=== PATIENT | male | born 1965 | race Caucasian/White ===

== ENCOUNTER 2021-12-24 11:47 | Inpatient (IN) | payer MEDICAID ==
[~2021-12-24] VITALS: Ht 172.7 cm; Wt 63.6 kg
[~2021-12-24 11:47] MED LIST: ABAC1TAB9 PO; BACL20TA84 PO; CLON-527 PO; COMIN IH; DEXL60CA3 PO; IPRA3AMP19 IH; ONDA8TAB9 PO; PER10325T PO; PRED10TA23 PO; QUET150T2 PO; RISP2TAB97 PO; RITO100T PO; ROPI3TAB PO; TRAZ-91 PO; [UNRECOGNIZED DRUG - CODE] PO
[2021-12-24] MEDS ORDERED: acetaminophen 325mg tablet PO STA (12:41)
[2021-12-24] MEDS ORDERED: normal saline 1000ML IV soln IV ONE (12:45)
[2021-12-24] MEDS ORDERED: azithromycin/NS 500mg/250ml 250 ML IV ONE ×2 (12:45→13:45)
[2021-12-24] MEDS ORDERED: CefTRIAXone 2gm/D5W 50ml BAG 50 ML IV ONE ×2 (12:45→13:45)
[2021-12-24 13:19] LABS: BASOPHILS % (AUTO) 0.1 % (0-1); EOSINOPHILS % (AUTO) 0 % (0-6); HEMATOCRIT 42.6 % (42.0-52.0); HEMOGLOBIN 14.3 g/dl (14.0-17.9); LYMPHOCYTES # (AUTO) 0.9 X10'3 (1.1-4.8); LYMPHOCYTES % (AUTO) 12.6 % (21-51); MEAN CORPUSCULAR HEMOGLOBIN 28.7 PG (27.0-31.0); MEAN CORPUSCULAR HGB CONC 33.7 g/dL (33.0-36.5); MEAN CORPUSCULAR VOLUME 85.2 FL (78-98); MEAN PLATELET VOLUME 9.7 FL (7.4-10.4); MONOCYTES # (AUTO) 0.1 X10'3 (0-0.9); MONOCYTES % (AUTO) 1.8 % (2-12); NEUTROPHILS % (AUTO) 85.5 % (42-75); PLATELET COUNT 141 X10'3 (140-440); RED BLOOD COUNT 4.99 X10'6 (4.70-6.10); RED CELL DISTRIBUTION WIDTH 14.4 % (11.5-14.5)
[2021-12-24 13:37] LABS: ALANINE AMINOTRANSFERASE 17 U/L (12-78); ALBUMIN 2.7 G/DL (3.4-5.0); ALBUMIN/GLOBULIN RATIO 0.7 (1.1-1.5); ANION GAP 8 (8-16); ASPARTATE AMINO TRANSFERASE 19 U/L (10-37); BILIRUBIN,TOTAL 0.6 MG/DL (0.1-1.0); BLOOD UREA NITROGEN 43 MG/DL (7-18); BUN/CREATININE RATIO 16.3 (5.4-32.0); CHLORIDE 93 MMOL/L (99-107); CREATININE 2.63 MG/DL (0.60-1.10); GLUCOSE 92 MG/DL (70-104); POTASSIUM 4.4 MMOL/L (3.5-5.1); SODIUM 132 MMOL/L (135-145); TOTAL CARBON DIOXIDE 31.2 MMOL/L (24-32); TOTAL PROTEIN 6.8 G/DL (6.4-8.2); eGFR 26 ML/MIN
[2021-12-24] MEDS ORDERED: dexamethasone sod phosphate 10mg/ml inj IV STA (13:42)
[2021-12-24] MEDS ORDERED: acetaminophen 325mg tablet PO ONE (13:55)
[2021-12-24] MEDS ORDERED: morphine 2 MG/ML inj. syringe IV ONE ×2 (13:55→22:10)
[2021-12-24 14:38] LABS: LACTATE DEHYDROGENASE 189 U/L (85-227)
[2021-12-24 14:53] LABS: LARGE PLATELETS FEW; TOTAL CELLS COUNTED 100; TOXIC GRANULATION 3+; TOXIC VACUOLATION 3+
[2021-12-24 14:54] LABS: ANISOCYTOSIS FEW; BURR CELLS 1+; ELLIPTOCYTES FEW; PLATELET ESTIMATE DECREASED
[2021-12-24] MEDS ORDERED: sulfmethoxaz/trimethoprim inj 10 ML in dextrose 5%-water 240 ML IV SCH (15:10)
[2021-12-24] MEDS ORDERED: sulfmethoxaz/trimethoprim inj 10 ML in dextrose 5%-water 240 ML IV ONE (15:14)
[2021-12-24 16:03] LABS: ABG BASE EXCESS 4.7 mmol/L (-2.0-2.0); ABG OXYGEN SATURATION 94.3 % (94-97); ABG PCO2 (T) 36.8 mmHg (35.0-48.0); ABG PO2 (T) 70.7 mmHg (75.0-100.0); ALLEN'S TEST POSITIVE; FCOHb 0.7 % (0.0-3.9); FMetHb 0.2 % (0.0-1.5); FO2Hb 93.5 % (94-97); TOTAL HEMOGLOBIN 12.8 G/dl (14.0-18.0)
[2021-12-24] MEDS ORDERED: NO HOME MEDS (16:31)
[2021-12-24] MEDS ORDERED: ondansetron 4mg rapidly disintigrating tab PO PRN (20:25)
[2021-12-24] MEDS ORDERED: magnesium 4gm in 100ml NS 100 ML IV PRN (20:25)
[2021-12-24] MEDS ORDERED: magnesium 2GM in 50ml NS 50 ML IV PRN (20:25)
[2021-12-24] MEDS ORDERED: magnesium Cl slow-release 64mg tablet PO PRN (20:25)
[2021-12-24] MEDS ORDERED: potassium Cl 20 mEq SR tablet PO PRN ×2 (20:25)
[2021-12-24] MEDS ORDERED: potassium CL 10mEq/100ml bag 100 ML IV PRN (20:25)
[2021-12-24] MEDS: normal saline 1000ml 1,000 ML IV SCH ×2 (21:18→21:28)
[2021-12-24] MEDS: azithromycin/NS 500mg/250ml 250 ML IV SCH ×2 (21:19→21:28)
[2021-12-24 21:49] LABS: MAGNESIUM 1.3 MG/DL (1.5-2.4); POTASSIUM 4.5 MMOL/L (3.5-5.1)
[2021-12-24] MEDS ORDERED: PERFLUTREN PROTEIN-A MICROSPHR (Optison) 0.22 MG/ML 3ML VIAL IV ONE (23:45)
[2021-12-25 01:46] LABS: ALBUMIN 2.2 G/DL (3.4-5.0); ANION GAP 10 (8-16); BLOOD UREA NITROGEN 37 MG/DL (7-18); CALCIUM 7.2 MG/DL (8.5-10.1); CHLORIDE 100 MMOL/L (99-107); CREATININE 1.85 MG/DL (0.60-1.10); GLUCOSE 136 MG/DL (70-104); MAGNESIUM 1.4 MG/DL (1.5-2.4); POTASSIUM 4.2 MMOL/L (3.5-5.1); SODIUM 135 MMOL/L (135-145); TOTAL CARBON DIOXIDE 25.3 MMOL/L (24-32); eGFR 38 ML/MIN
[2021-12-25 01:53] LABS: BASOPHILS % (AUTO) 0 % (0-1); EOSINOPHILS % (AUTO) 0.1 % (0-6); HEMATOCRIT 40.5 % (42.0-52.0); HEMOGLOBIN 13.7 g/dl (14.0-17.9); LYMPHOCYTES # (AUTO) 0.7 X10'3 (1.1-4.8); LYMPHOCYTES % (AUTO) 8.2 % (21-51); MEAN CORPUSCULAR HEMOGLOBIN 28.8 PG (27.0-31.0); MEAN CORPUSCULAR HGB CONC 33.8 g/dL (33.0-36.5); MEAN CORPUSCULAR VOLUME 85.4 FL (78-98); MEAN PLATELET VOLUME 10.2 FL (7.4-10.4); MONOCYTES # (AUTO) 0.2 X10'3 (0-0.9); MONOCYTES % (AUTO) 2.2 % (2-12); NEUTROPHILS # (AUTO) 7.9 X10'3 (1.8-7.7); NEUTROPHILS % (AUTO) 89.5 % (42-75); PLATELET COUNT 118 X10'3 (140-440); RED BLOOD COUNT 4.74 X10'6 (4.70-6.10); RED CELL DISTRIBUTION WIDTH 14.7 % (11.5-14.5); WHITE BLOOD COUNT 8.8 X10'3 (4.5-11.0)
[2021-12-25] MEDS: normal saline 1000ml 1,000 ML IV SCH ×2 (02:05→16:02)
[2021-12-25 02:12] VITALS: BP 114/80
--- NOTE | 2021-12-25 02:17 | NUR ---
Patient admitted to room 3014B. Alert and oriented X4. Unsteady on his feet, dyspneic on exertion. 3L 94% complaining of chest pain. Tylenol given. Tele attached. Call hinson within reach. Will continue to monitor.
--- NOTE | 2021-12-25 05:52 | NUR ---
Patient complaining of non-productive cough. order for Robitussin DM 10mg q6hrs as needed.
[2021-12-25 06:00] VITALS: BP 146/80
[2021-12-25] MEDS: ondansetron/PF 4mg/2ml inj IV PRN ×3 (06:35→20:35)
[2021-12-25] MEDS: guaiFENesin/DM 10ml UD oral syrup PO PRN ×2 (07:38→20:36)
[2021-12-25] MEDS: K and/or MAG REPLACEMENT MC SCH ×2 (08:00→20:00)
[2021-12-25] MEDS ORDERED: LORazepam 2 mg/ml vial IV PRN (09:05)
[2021-12-25] MEDS: LORazepam 1 MG tablet PO PRN ×2 (10:22→20:36)
[2021-12-25 11:00] VITALS: BP 123/81
[2021-12-25] MEDS: CefTRIAXone 2gm/D5W 50ml BAG 50 ML IV SCH (13:18)
[2021-12-25] MEDS: acetaminophen 325mg tablet PO PRN (14:26)
--- NOTE | 2021-12-25 17:45 | NUR ---
Mr Phillip has been assessed as indicated. He has had periods of agitation and restlessness. he repeatedly tells staff that he has axniety.. He is occasionally short of breath spontaneously. He has had several episode of nausea with a small clear emesis. He has IV access at this time. This had to be placed by the PICC nurse, after sevral; Addendum: 12/25/21 at 1806 by Lisseth Wilhelm RN nurses had difficulty attempting to establish patent access. he has rested between period sof being aggitated and impulsive. IV antibiotics have been well toelrated
[2021-12-25 18:00] VITALS: BP 124/93
--- NOTE | 2021-12-25 18:15 | NUR ---
Problems reprioritized. Patient report given, questions answered & plan of care reviewed with PANKAJ MOELLER.
[2021-12-25] MEDS: furosemide 40mg/4ml inj IV SCH (18:25)
--- NOTE | 2021-12-25 20:00 | NUR ---
Patient anxious, jittery and irritated after given Ativan IV. Pulled IV out that staff had to place with ultrasound. Has ripped tele off 3 times with no reason why. This nurse asked patient when was his last drink of alcohol, "he stated it was a 40 and a few days ago." Doctor paged to discuss the possibility that the patient having signs of a withdrawal behavior". Doctor seen on unit. order for PO ativan 1mg q8, a order for PO Ativan already exist for patient. Will continue to monitor.
[2021-12-25] MEDS: azithromycin/NS 500mg/250ml 250 ML IV SCH (20:35)
[2021-12-25 22:00] VITALS: BP 128/68
[2021-12-25 22:13] LABS: URINE AMPHETAMINE SCREEN POSITIVE (Neg); URINE BARBITUATE SCREEN NEGATIVE (Neg); URINE BENZODIAZEPINES SCREEN NEGATIVE (Neg); URINE CANNABINOID SCREEN POSITIVE (Neg); URINE COCAINE SCREEN NEGATIVE (Neg); URINE METHADONE SCREEN NEGATIVE (Neg); URINE OPIATE SCREEN NEGATIVE (Neg); URINE PHENCYCLIDINE SCREEN NEGATIVE (Neg)
[2021-12-26 06:00] VITALS: BP 105/64
[2021-12-26 07:12] LABS: BASOPHILS % (AUTO) 0 % (0-1); EOSINOPHILS % (AUTO) 0 % (0-6); HEMATOCRIT 35.7 % (42.0-52.0); LYMPHOCYTES # (AUTO) 0.8 X10'3 (1.1-4.8); LYMPHOCYTES % (AUTO) 7.5 % (21-51); MEAN CORPUSCULAR HEMOGLOBIN 28.5 PG (27.0-31.0); MEAN CORPUSCULAR HGB CONC 33.5 g/dL (33.0-36.5); MEAN PLATELET VOLUME 10.2 FL (7.4-10.4); MONOCYTES # (AUTO) 0.4 X10'3 (0-0.9); MONOCYTES % (AUTO) 3.5 % (2-12); NEUTROPHILS # (AUTO) 9.2 X10'3 (1.8-7.7); PLATELET COUNT 104 X10'3 (140-440); RED BLOOD COUNT 4.19 X10'6 (4.70-6.10); RED CELL DISTRIBUTION WIDTH 14.7 % (11.5-14.5); WHITE BLOOD COUNT 10.3 X10'3 (4.5-11.0)
[2021-12-26 08:00] LABS: ANION GAP 7 (8-16); BLOOD UREA NITROGEN 33 MG/DL (7-18); BUN/CREATININE RATIO 25.2 (5.4-32.0); CALCIUM 7.6 MG/DL (8.5-10.1); CHLORIDE 103 MMOL/L (99-107); CREATININE 1.31 MG/DL (0.60-1.10); GLUCOSE 93 MG/DL (70-104); POTASSIUM 3.6 MMOL/L (3.5-5.1); SODIUM 136 MMOL/L (135-145); eGFR 57 ML/MIN
[2021-12-26] MEDS: K and/or MAG REPLACEMENT MC SCH ×2 (08:00→11:14)
[2021-12-26] MEDS: acetaminophen 325mg tablet PO PRN (09:17)
[2021-12-26] MEDS: furosemide 40mg/4ml inj IV SCH (10:04)
[2021-12-26] MEDS: CefTRIAXone 2gm/D5W 50ml BAG 50 ML IV SCH (10:04)
[2021-12-26] MEDS: normal saline 1000ml 1,000 ML IV SCH (10:04)
--- NOTE | 2021-12-26 10:09 | NUR ---
Medications passed for primary nurse Alem MOELLER while on break. Kayla PCU (Resource RN)
[2021-12-26 11:00] VITALS: BP 110/59
[2021-12-26] MEDS ORDERED: traMADol 50MG tablet PO PRN (13:15)
[2021-12-26 15:00] VITALS: BP 111/65
[2021-12-26 16:11] LABS: PLATELET ESTIMATE NORMAL; SMUDGE CELLS FEW; TOTAL CELLS COUNTED 100
--- NOTE | 2021-12-26 17:45 | NUR ---
Mr Phillip has been assessed as indicated. He was very sleepy this shift. When in the bed he is very restless. When he needs to get up he is impulsive and unpredictable. he repositions himself in the bed frequently. he refuses a hospital gown. he has been successfully treated for a headache with Ultram. He has tolerated IV ABX well. He is presently resting quietly and will continue to be monitored
[2021-12-26 18:00] VITALS: BP 104/52
--- NOTE | 2021-12-26 18:30 | NUR ---
Problems reprioritized. Patient report given, questions answered & plan of care reviewed with PANKAJ MOELLER .
[2021-12-26] MEDS: carVEDilol 3.125mg tablet PO SCH (19:47)
[2021-12-26] MEDS: LORazepam 1 MG tablet PO PRN (19:48)
[2021-12-26 22:00] VITALS: BP 98/58
[2021-12-27 06:00] VITALS: BP 101/68
[2021-12-27] MEDS ORDERED: lisinopril 2.5mg tablet PO SCH (08:00)
[2021-12-27 08:37] LABS: BASOPHILS % (AUTO) 0.1 % (0-1); LYMPHOCYTES # (AUTO) 0.9 X10'3 (1.1-4.8); MONOCYTES # (AUTO) 0.5 X10'3 (0-0.9); WHITE BLOOD COUNT 6.6 X10'3 (4.5-11.0)
[2021-12-27 08:40] LABS: EOSINOPHILS % (AUTO) 0.4 % (0-6); HEMATOCRIT 38.3 % (42.0-52.0); HEMOGLOBIN 12.9 g/dl (14.0-17.9); LYMPHOCYTES % (AUTO) 13.1 % (21-51); MEAN CORPUSCULAR HEMOGLOBIN 28.5 PG (27.0-31.0); MEAN CORPUSCULAR HGB CONC 33.6 g/dL (33.0-36.5); MEAN CORPUSCULAR VOLUME 84.6 FL (78-98); MEAN PLATELET VOLUME 10.5 FL (7.4-10.4); MONOCYTES % (AUTO) 7.3 % (2-12); NEUTROPHILS # (AUTO) 5.3 X10'3 (1.8-7.7); NEUTROPHILS % (AUTO) 79.1 % (42-75); PLATELET COUNT 132 X10'3 (140-440); RED BLOOD COUNT 4.52 X10'6 (4.70-6.10); RED CELL DISTRIBUTION WIDTH 14.9 % (11.5-14.5)
[2021-12-27] MEDS: CefTRIAXone 2gm/D5W 50ml BAG 50 ML IV SCH (09:19)
[2021-12-27] MEDS: carVEDilol 3.125mg tablet PO SCH (09:19)
[2021-12-27] MEDS: furosemide 40mg/4ml inj IV SCH (09:19)
[2021-12-27 09:24] LABS: ALBUMIN 2.2 G/DL (3.4-5.0); ANION GAP 7 (8-16); BLOOD UREA NITROGEN 31 MG/DL (7-18); BUN/CREATININE RATIO 27.2 (5.4-32.0); CALCIUM 8.1 MG/DL (8.5-10.1); CHLORIDE 100 MMOL/L (99-107); CREATININE 1.14 MG/DL (0.60-1.10); GLUCOSE 88 MG/DL (70-104); MAGNESIUM 1.9 MG/DL (1.5-2.4); POTASSIUM 3.7 MMOL/L (3.5-5.1); SODIUM 134 MMOL/L (135-145); TOTAL CARBON DIOXIDE 26.7 MMOL/L (24-32); eGFR 67 ML/MIN
--- NOTE | 2021-12-27 09:29 | NUR ---
oxygen off at 0900 pulse ox on room air at 0930 92%
[2021-12-27 09:51] LABS: PLATELET ESTIMATE DECREASED
[2021-12-27 09:52] LABS: GIANT PLATELET FEW; LARGE PLATELETS FEW
[2021-12-27 09:53] LABS: ANISOCYTOSIS FEW; BURR CELLS FEW
[2021-12-27] MEDS ORDERED: COR3.125T PO (10:10)
[2021-12-27] MEDS ORDERED: FURO40TA4 PO ×2 (10:11→12:04)
[2021-12-27] MEDS ORDERED: LISI2.5T14 PO ×2 (10:11→12:04)
[2021-12-27] MEDS ORDERED: LEVO750T46 PO ×2 (10:11→12:04)
[2021-12-27 11:00] VITALS: BP_SYST 116; BP_SYST 96; BP_DIAS 60; BP_DIAS 85
[2021-12-27] MEDS ORDERED: CARV3.122 PO (12:04)
--- NOTE | 2021-12-27 12:05 | NUR ---
Mr Phillip has been assessed as indicated. he denies pain. He is being DC to home. He will be transported by private vehicle. IV access has been removed. DC instructions have been reviewed. He was visited by a sales representative groceries from [facility]. He was compliant with the plan to DC. RX were given in paper form at the patient's request. At the time of DC he had no s/s of distress or discomfort. He was escorted to the front door by WC escorted by staff. His ride was 6 minutes away. The sales representative groceries from [facility] remained with him as he waited for his ride to arrive
[2021-12-27 12:48] LABS: % CD 4 POS. LYMPH. 7.2 % (30.8-58.5); % CD 8 POS. LYMPH. 45.4 % (12.0-35.5); ABS. CD 8 SUPPRESSOR 545 /uL (109-897); ABSOLUTE CD 4 HELPER 86 /uL (359-1519); BASO (ABSOLUTE) 0.1 x10E3/uL (0.0-0.2); BASOS 1 % (Not Estab.); CD4/CD8 RATIO 0.16 (0.92-3.72); EOS 0 % (Not Estab.); LYMPHS 9 % (Not Estab.); LYMPHS (ABSOLUTE) 1.2 x10E3/uL (0.7-3.1); MCH 28.5 pg (26.6-33.0); MCHC 33.3 g/dL (31.5-35.7); MCV 86 fL (79-97); MONOCYTES 3 % (Not Estab.); MONOCYTES (ABSOLUTE) 0.4 x10E3/uL (0.1-0.9); NEUTROPHILS 86 % (Not Estab.); PLATELETS 151 x10E3/uL (150-450); RBC 3.86 x10E6/uL (4.14-5.80); RDW 14.8 % (11.6-15.4); WBC 12.7 x10E3/uL (3.4-10.8)
[2021-12-29 22:47] LABS: HIV LOG 10 4.884 (.); HIV-1 RNA by PCR 76480 copies/mL (.)
== END 2021-12-27 12:10 | disposition home or self-care (01) | DRG 890 ==
LOC: ER 11:47 → ED HOLD 20:31 → PCU 3S 12-25 01:35
PROVIDERS: ADMIT Internal Medicine; ATTEND Internal Medicine
DX: A40.3 Sepsis due to Streptococcus pneumoniae (principal); B20 Human immunodeficiency virus [HIV] disease; J96.00 Acute respiratory failure, unspecified whether with hypoxia or hypercapnia; N17.0 Acute kidney failure with tubular necrosis; I50.21 Acute systolic (congestive) heart failure; I21.A1 Myocardial infarction type 2; I42.9 Cardiomyopathy, unspecified; J13 Pneumonia due to Streptococcus pneumoniae; E86.0 Dehydration; Z20.822 Contact with and (suspected) exposure to COVID-19; F19.10 Other psychoactive substance abuse, uncomplicated; F32.A Depression, unspecified; F41.9 Anxiety disorder, unspecified; F10.20 Alcohol dependence, uncomplicated; N18.9 Chronic kidney disease, unspecified; F17.210 Nicotine dependence, cigarettes, uncomplicated; J44.0 Chronic obstructive pulmonary disease with (acute) lower respiratory infection; Z59.00 Homelessness unspecified; Z91.14 Patient's other noncompliance with medication regimen; Z91.19 Patient's noncompliance with other medical treatment and regimen; Z56.0 Unemployment, unspecified; Z93.0 Tracheostomy status
CPT/HCPCS: 36000; 36415; 36600; 71045; 76937; 80048; 80053; 80305; 82803; 83605; 83615; 83735; 83880; 84132; 84145; 84484; 85007; 85008; 85018; 85025; 86360; 87040; 87077; 87081; 87186; 87502; 87503; 87535; 87635; 93005; 93306; 96365; 96366; 96368; 99291; C9803; G0378; J0456; J0696; J1100; J1940; J2060; J2270; J2405; J3490; J7030; J7060

== ENCOUNTER 2023-07-28 14:12 | Emergency (ER) | payer MEDICAID ==
[~2023-07-28] VITALS: Ht 170.2 cm; Wt 72.8 kg
[~2023-07-28 14:12] MED LIST changes: -ABAC1TAB9 PO; -BACL20TA84 PO; +CARV3.122 PO; -CLON-527 PO; -COMIN IH; -DEXL60CA3 PO; +FURO40TA4 PO; -IPRA3AMP19 IH; +LEVO750T68 PO; +LISI2.5T14 PO; -ONDA8TAB9 PO; -PER10325T PO; -PRED10TA23 PO; -QUET150T2 PO; -RISP2TAB97 PO; -RITO100T PO; -ROPI3TAB PO; -TRAZ-91 PO; -[UNRECOGNIZED DRUG - CODE] PO
[2023-07-28 14:13] VITALS: BP 146/92; PULSE 102; TEMP 97.6; O2SAT 100
[2023-07-28] MEDS ORDERED: orphenadrine citrate 60mg/2ml inj. IM ONE (17:00)
[2023-07-28] MEDS ORDERED: HYDROcodone/acetaminophen 10/325mg tab PO ONE (17:00)
[2023-07-28] MEDS ORDERED: TRAM50TA2 PO (17:12)
[2023-07-28 17:15] VITALS: RESP 16
== END 2023-07-28 17:24 | disposition home or self-care (01) ==
LOC: ER 14:13
DX: S46.911A Strain of unspecified muscle, fascia and tendon at shoulder and upper arm level, right arm, initial encounter (principal); X58.XXXA Exposure to other specified factors, initial encounter; Y93.89 Activity, other specified; Y92.89 Other specified places as the place of occurrence of the external cause; Y99.8 Other external cause status
CPT/HCPCS: 73030; 96372; 99283; J2360; A4565